=== PATIENT | female | born 1990 | race Native Hawaiian/Other Pacific Islander ===

== ENCOUNTER 2023-01-03 00:31 | Emergency (ER) | payer MEDICAID ==
[~2023-01-03] VITALS: Ht 162.6 cm; Wt 79.4 kg
[~2023-01-03 00:31] MED LIST: CRS350T PO; CYCL10TA9 PO; METH4TAB PO; NAPR250T34 PO; PRM25T PO
--- NOTE | 2023-01-03 01:46 | ED Lower Extremity ---
General Chief Complaint: Lower Extremity Stated Complaint: LEG ANKLE & FOOT PAIN Nursing Triage Note: Patient ambulates to ED6. Reports left ankle/foot rolled and was caught in a door on Sunday. Pt reports using ice/heat and wrapping ankle to alleviate swelling. Now reports that foot is cold, discolored, intermittent swelling, and with decreased cap refill, and feels like it is "popping" when ambulating. Reports pain 7/10, radiates from lateral side of left foot up into ankle. Source: patient Exam Limitations: no limitations History of Present Illness Date Seen by Provider: January 03, 2023 Time Seen by Provider: 01:37 Initial Comments Patient is a 32-year-old female who presents to the emergency room with a chief complaint of left foot pain. Patient states that she was going through some double doors when the door did not open correctly and her foot got caught between the 2 doors. Her ankle "rolled" and she sustained a crush injury to the mid left foot. Patient complains of the most pain to the lateral aspect of the left foot. She states it is painful to walk on. She feels a "popping" when she walks. She states the foot feels cold. Denies any injury to her knee. Declining pain medications as she states she is a "severe epileptic" and will not risk taking pain medications with her seizure medications. Onset: other (4 days ago) Pain/Injury Location: left foot Method of Injury: other (crushed foot between 2 doors) Modifying Factors: Improves With Cold Therapy, Improves With Immobilization; Worse With Movement Allergies and Home Medications Allergies Uncoded Allergies: orange dye (Allergy, Intermediate, 12/10/11) pcn (Allergy, Unknown, 12/10/11) Patient Home Medication List Home Medication List Reviewed: Yes Carisoprodol (Soma) 350 Mg Tablet, 1 TAB PO TID PRN Prescribed by: YASH SANTAMARIA on 12/10/111935 Methylprednisolone (Medrol Dose Pack) 4 Mg/Dose-Pack Tab.ds.pk, 1 PACKET PO UD Prescribed by: YASH SANTAMARIA on 12/10/111926 Naproxen (Naprosyn) 250 Mg Tablet, 1 EACH PO TID, (Reported) Entered as Reported by: TALAT DOUGHERTY on 12/10/111917 Promethazine Hcl (Phenergan 25 Mg) 25 Mg Tablet, 1 TAB PO DAILY, (Reported) Entered as Reported by: TALAT DOUGHERTY on 12/10/111917 Review of Systems Constitutional: see HPI Musculoskeletal: joint pain (left foot) Skin: other (swelling) Past Hzhehoz-Xyhwqs-Csfrwm Hx Patient Social History Tobacco Use?: Yes Tobacco type used: Cigarettes Smoking Status: Current Someday Smoker Substance use?: Yes Substance type: Marijuana Substance frequency: Couple times a week Alcohol Use?: No Pt feels they are or have been: No Immunizations Up To Date Influenza Vaccine Up-to-Date: No; Not Current First/Initial COVID19 Vaccinat: None Physical Exam Vital Signs Vital Signs - First Documented 01/03/23 01:05 Temp 36.3 Pulse 77 Resp 16 B/P (MAP) 129/99 (109) Pulse Ox 98 O2 Delivery Room Air Capillary Refill : Height, Weight, BMI Height: '" Weight: lbs. oz. kg; 30.00 BMI Method:Stated General Appearance: WD/WN, no apparent distress Cardiovascular: regular rate, rhythm Respiratory: no respiratory distress, no accessory muscle use Hips: bilateral hip normal range of motion Legs: bilateral leg normal range of motion Knees: left knee non-tender, left knee normal inspection, left knee normal range of motion, left knee no evidence of injury Ankles: left ankle non-tender, left ankle normal inspection, left ankle normal range of motion, left ankle no evidence of injury Feet: left foot bone tenderness, left foot limited range of motion, left foot pain, left foot soft tissue tenderness (left dorsal lateral foot as well as plantar surface) Neurologic/Tendon: normal sensation Neurologic/Psychiatric: alert, normal mood/affect, oriented x 3 Skin: normal color, warm/dry Progress/Results/Core Measures Results/Orders My Orders Orders - FLOR WEN MD Foot, Left, 3 Views (01/03/23 01:42) Vital Signs/I&O 01/03/23 01/03/23 01:05 03:07 Temp 36.3 36.3 Pulse 77 69 Resp 16 16 B/P (MAP) 129/99 (109) 127/96 Pulse Ox 98 99 O2 Delivery Room Air Room Air Blood Pressure Mean: 109 Diagnostic Imaging Diagonstic Imaging: Xray Comments foot xray - independent interpretation - no fracture or dislocation Departure Impression Primary Impression: Contusion of foot Qualified Codes: S90.32XA - Contusion of left foot, initial encounter Disposition: HOME, SELF-CARE Condition: Stable Departure-Patient Inst. Decision time for Depature: 02:53 Referrals: NO,LOCAL PHYSICIAN (PCP/Family) Primary Care Physician Patient Instructions: Foot Sprain ED Add. Discharge Instructions: Continue to alternate ice and heat. You can use over the counter Diclofenac gel/cream or Icy Hot or Biofreeze for pain. Elevate the foot to decrease swelling. Follow up with your primary care doctor. FLOR WEN MD January 03, 2023 01:46
[2023-01-03 03:07] VITALS: BP 127/96
--- NOTE | 2023-01-03 06:05 | Diagnostic Imaging Report ---
FOOT, LEFT, 3 VIEWS INDICATION: Left foot pain after injury COMPARISON: None available. TECHNIQUE: Three non-weightbearing views of foot were obtained. FINDINGS: No fracture or traumatic malalignment. No evidence of metatarsal stress fracture. No soft tissue swelling. IMPRESSION: 1. No acute fracture or traumatic malalignment. Dictated by: Dictated on workstation # [id number]
== END 2023-01-03 03:07 | disposition home or self-care (01) ==
LOC: EDUNIT# 00:31 → ER 00:38
DX: S90.32XA Contusion of left foot, initial encounter (principal); G40.909 Epilepsy, unspecified, not intractable, without status epilepticus; F17.210 Nicotine dependence, cigarettes, uncomplicated; Z79.899 Other long term (current) drug therapy; Z28.310 Unvaccinated for COVID-19; W23.0XXA Caught, crushed, jammed, or pinched between moving objects, initial encounter
CPT/HCPCS: 73630

== ENCOUNTER 2023-01-20 21:43 | Emergency (ER) | payer MEDICAID ==
[~2023-01-20] VITALS: Ht 162.6 cm; Wt 87.5 kg
[2023-01-20] MEDS ORDERED: LORazepam INJ 2 MG/ML (ATIVAN) VIAL IVP STA (22:02)
--- NOTE | 2023-01-20 22:05 | ED Chest Pain ---
General Chief Complaint: Cardiac/General Problems Stated Complaint: ARMS NUMB/CHEST PAIN Source: patient Exam Limitations: no limitations History of Present Illness Date Seen by Provider: January 20, 2023 Time Seen by Provider: 21:47 Initial Comments 32-year-old female with past medical history of epilepsy most notably coming in due to chest pain and essentially whole body numbness. She was working at the [employer], was laughing, and noticed everything come on all of a sudden. This has happened in the past and she follows with a building maintenance technician. She has had a negative stress test in the past and has another one coming up soon. She is also had a legal technician patch on currently. Denies any prior history of DVT or PE, no lower extremity swelling or pain, no recent surgery, no hormone use. She states she feels hot, was breathing rapidly, and felt like her hands and feet were both numb. Allergies and Home Medications Allergies Uncoded Allergies: orange dye (Allergy, Intermediate, 12/10/11) pcn (Allergy, Unknown, 12/10/11) Patient Home Medication List Home Medication List Reviewed: Yes Carisoprodol (Soma) 350 Mg Tablet, 1 TAB PO TID PRN Prescribed by: YASH SANTAMARIA on 12/10/111935 Methylprednisolone (Medrol Dose Pack) 4 Mg/Dose-Pack Tab.ds.pk, 1 PACKET PO UD Prescribed by: YASH SANTAMARIA on 12/10/111926 Naproxen (Naprosyn) 250 Mg Tablet, 1 EACH PO TID, (Reported) Entered as Reported by: TALAT DOUGHERTY on 12/10/111917 Promethazine Hcl (Phenergan 25 Mg) 25 Mg Tablet, 1 TAB PO DAILY, (Reported) Entered as Reported by: TALAT DOUGHERTY on 12/10/111917 Review of Systems Review of Systems Constitutional: No fever EENTM: No Symptoms Reported Respiratory: No Symptoms Reported Cardiovascular: See HPI Gastrointestinal: No Symptoms Reported Genitourinary: No Symptoms Reported Musculoskeletal: no symptoms reported Psychiatric/Neurological: See HPI Endocrine: No Symptoms Reported Hematologic/Lymphatic: No Symptoms Reported Past Bekrmez-Lolhjo-Ucyhma Hx Patient Social History Tobacco Use?: Yes Tobacco type used: Cigarettes Substance use?: Yes Substance type: Marijuana Immunizations Up To Date First/Initial COVID19 Vaccinat: None Past Medical History Surgeries: Yes Gallbladder, Hysterectomy Physical Exam Vital Signs Vital Signs - First Documented 01/20/23 21:53 Temp 35.9 Pulse 71 Resp 23 B/P (MAP) 130/96 (107) Pulse Ox 100 Capillary Refill : Height, Weight, BMI Height: '" Weight: lbs. oz. kg; 30.00 BMI Method:Stated General Appearance: WD/WN, Anxious HEENT: PERRL/EOMI, Normal ENT Inspection, Pharynx Normal Neck: Full Range of Motion, Normal Inspection, Non Tender, Supple Respiratory: Chest Non Tender, Lungs Clear, Normal Breath Sounds, No Accessory Muscle Use, No Respiratory Distress Cardiovascular: Regular Rate, Rhythm, No Edema, Normal Peripheral Pulses Gastrointestinal: Normal Bowel Sounds, Non Tender, Soft; No Distended, No Guarding Extremity: Normal Capillary Refill, Normal Inspection, Normal Range of Motion, Non Tender, No Calf Tenderness, No Pedal Edema Neurologic/Psychiatric: Alert, Oriented x3, No Motor/Sensory Deficits, Normal Mood/Affect, recovery manager II-XII Norm as Tested Skin: Normal Color, Warm/Dry Progress/Results/Core Measures Results/Orders Lab Results Laboratory Tests Test 01/20/23 22:00 01/20/23 22:15 Range/Units White Blood Count 7.1 4.3-11.0 10^3/uL Red Blood Count 5.49 H 3.80-5.11 10^6/uL Hemoglobin 15.8 11.5-16.0 g/dL Hematocrit 45 35-52 % Mean Corpuscular Volume 83 80-99 fL Mean Corpuscular Hemoglobin 29 25-34 pg Mean Corpuscular Hemoglobin Concent 35 32-36 g/dL Red Cell Distribution Width 13.8 10.0-14.5 % Platelet Count 294 130-400 10^3/uL Mean Platelet Volume 9.8 9.0-12.2 fL Immature Granulocyte % (Auto) 0 % Neutrophils (%) (Auto) 41 L 42-75 % Lymphocytes (%) (Auto) 48 H 12-44 % Monocytes (%) (Auto) 8 0-12 % Eosinophils (%) (Auto) 3 0-10 % Basophils (%) (Auto) 0 0-10 % Neutrophils # (Auto) 2.9 1.8-7.8 10^3/uL Lymphocytes # (Auto) 3.4 1.0-4.0 10^3/uL Monocytes # (Auto) 0.5 0.0-1.0 10^3/uL Eosinophils # (Auto) 0.2 0.0-0.3 10^3/uL Basophils # (Auto) 0.0 0.0-0.1 10^3/uL Immature Granulocyte # (Auto) 0.0 0.0-0.1 10^3/uL Prothrombin Time 12.6 12.2-14.7 SEC INR Comment 0.9 0.8-1.4 Activated Partial Thromboplast Time 31 24-35 SEC Sodium Level 138 135-145 MMOL/L Potassium Level 3.6 3.6-5.0 MMOL/L Chloride Level 104 98-107 MMOL/L Carbon Dioxide Level 19 L 21-32 MMOL/L Anion Gap 15 H 5-14 MMOL/L Blood Urea Nitrogen 11 7-18 MG/DL Creatinine 0.86 0.60-1.30 MG/DL Estimat Glomerular Filtration Rate 93 BUN/Creatinine Ratio 13 Glucose Level 83 70-105 MG/DL Calcium Level 10.0 8.5-10.1 MG/DL Corrected Calcium 8.5-10.1 MG/DL Magnesium Level 1.9 1.6-2.4 MG/DL Total Bilirubin 0.5 0.1-1.0 MG/DL Aspartate Amino Transf (AST/SGOT) 50 H 5-34 U/L Alanine Aminotransferase (ALT/SGPT) 69 H 0-55 U/L Alkaline Phosphatase 89 40-136 U/L Troponin I < 0.028 <0.028 NG/ML Total Protein 7.9 6.4-8.2 GM/DL Albumin 4.6 H 3.2-4.5 GM/DL Lipase 15 8-78 U/L Glucometer 61 L 70-110 MG/DL My Orders Orders - KATHERINE MUÑIZ MD Cbc With Automated Diff (01/20/23 22:02) Magnesium (01/20/23 22:02) Chest 1 View, Ap/Pa Only (01/20/23 22:02) Ekg Tracing (01/20/23 22:02) Comprehensive Metabolic Panel (01/20/23 22:02) Protime With Inr (01/20/23 22:02) Partial Thromboplastin Time (01/20/23 22:02) O2 (01/20/23 22:02) Monitor-Rhythm Ecg Trace Only (01/20/23 22:02) Ed Iv/Invasive Line Start (01/20/23 22:02) Lipase (01/20/23 22:02) Troponin I [place] (01/20/23 22:02) Lorazepam Injection (Ativan Injection) (01/20/23 22:02) Accucheck Stat ONCE (01/20/23 22:16) Vital Signs/I&O 01/20/23 21:53 Temp 35.9 Pulse 71 Resp 23 B/P (MAP) 130/96 (107) Pulse Ox 100 Progress Progress Note : Progress Note 32-year-old female with above history coming in due to chest pain. ABCs were intact and vitals were stable on presentation. Physical exam reassuring with no acute abnormalities and objectively no neuro findings with her being neuro intact. EKG ordered and interpreted by me showing no acute ischemic changes. Chest x-ray ordered and interpreted by me showing no pneumothorax, normal cardiac silhouette, no obvious pneumonia. An IV was placed and basic labs were obtained including cardiac biomarkers. She was given Ativan for her very obvious anxiety. She also has a seizure disorder, she states she potentially had a seizure earlier. She is low risk for PE per [place] criteria and is PERC negative. Low risk for ACS as well and has had negative stress testing in the past. White blood cell count normal, troponin negative, normal creatinine, slightly elevated AST and ALT which is nonspecific. No clinical signs of life- threatening illness at this time. I believe the patient is otherwise stable for discharge with outpatient follow-up. She was sent home with strict return precautions. Initial ECG Impression Date: January 20, 2023 Initial ECG Impression Time: 22:26 Initial ECG Rate: 50 Initial ECG Rhythm: S.Abhishek Comment Narrow QRS, normal axis, no significant ST changes or T wave abnormalities Diagnostic Imaging Diagonstic Imaging: Xray (chest) Departure Impression Primary Impression: Chest wall pain Additional Impression: Epilepsy Qualified Codes: G40.802 - Other epilepsy, not intractable, without status epilepticus Disposition: HOME, SELF-CARE Condition: Stable Departure-Patient Inst. Decision time for Depature: 22:50 Referrals: NO,LOCAL PHYSICIAN (PCP/Family) Primary Care Physician Patient Instructions: Chest Pain That Is Not Caused by the Heart (DC) Add. Discharge Instructions: We are not seeing any evidence of life-threatening causes of chest pain at this time. Please continue to follow-up with your building maintenance technician as scheduled. Continue to take your Keppra for your epilepsy. Do not operate any vehicles at this time. Work/School Note: Work Release Form Date Seen in the Emergency Department: January 20, 2023 Return to Work: January 22, 2023 Restrictions: No Restrictions KATHERINE MUÑIZ MD January 20, 2023 22:05
[2023-01-20 22:10] LABS: BASOPHILS % (AUTO) 0 % (0-10); EOSINOPHILS # (AUTO) 0.2 10^3/uL (0.0-0.3); EOSINOPHILS % (AUTO) 3 % (0-10); HEMATOCRIT 45 % (35-52); HEMOGLOBIN 15.8 g/dL (11.5-16.0); LYMPHOCYTES # (AUTO) 3.4 10^3/uL (1.0-4.0); LYMPHOCYTES % (AUTO) 48 % (12-44); MEAN CORPUSCULAR HEMOGLOBIN 29 pg (25-34); MEAN CORPUSCULAR HGB CONC 35 g/dL (32-36); MEAN CORPUSCULAR VOLUME 83 fL (80-99); MEAN PLATELET VOLUME 9.8 fL (9.0-12.2); MONOCYTES # (AUTO) 0.5 10^3/uL (0.0-1.0); MONOCYTES % (AUTO) 8 % (0-12); NEUTROPHILS # (AUTO) 2.9 10^3/uL (1.8-7.8); NEUTROPHILS % (AUTO) 41 % (42-75); PLATELET COUNT 294 10^3/uL (130-400); WHITE BLOOD COUNT 7.1 10^3/uL (4.3-11.0)
[2023-01-20 22:19] LABS: ALBUMIN 4.6 GM/DL (3.2-4.5); CHLORIDE 104 MMOL/L (98-107); POTASSIUM 3.6 MMOL/L (3.6-5.0); SODIUM 138 MMOL/L (135-145)
[2023-01-20 22:20] LABS: INR 0.9 (0.8-1.4); PROTHROMBIN TIME PATIENT 12.6 SEC (12.2-14.7)
[2023-01-20 22:21] LABS: GLUCOSE 83 MG/DL (70-105)
[2023-01-20 22:22] LABS: TOTAL PROTEIN 7.9 GM/DL (6.4-8.2)
[2023-01-20 22:23] LABS: BILIRUBIN,TOTAL 0.5 MG/DL (0.1-1.0); CARBON DIOXIDE 19 MMOL/L (21-32)
[2023-01-20 22:25] LABS: ALKALINE PHOSPHATASE 89 U/L (40-136); CREATININE SERUM 0.86 MG/DL (0.60-1.30); GFR ESTIMATED 93
[2023-01-20 22:26] LABS: BUN/CREATININE RATIO 13
[2023-01-20 22:28] LABS: ALANINE AMINOTRANSFERASE 69 U/L (0-55); MAGNESIUM 1.9 MG/DL (1.6-2.4)
[2023-01-20 22:29] LABS: LIPASE 15 U/L (8-78)
[2023-01-20 22:54] VITALS: BP 131/97
--- NOTE | 2023-01-21 07:06 | Diagnostic Imaging Report ---
CHEST 1 VIEW, AP/PA ONLY Indication: Chest pain. Comparison: None available. Findings: Right perihilar hazy opacities are likely due to summation shadow from patient's breast tissue. No pleural effusion or pneumothorax. Normal cardiac silhouette. Impression: 1. Right perihilar opacities are likely due to summation shadow from patient breast tissue. Although, in the appropriate clinical setting this could be due to pneumonia. Dictated by: Dictated on workstation # [id number]
== END 2023-01-20 22:55 | disposition home or self-care (01) ==
LOC: EDUNIT# 21:43 → ER 21:45
DX: R07.89 Other chest pain (principal); G40.909 Epilepsy, unspecified, not intractable, without status epilepticus; F41.9 Anxiety disorder, unspecified; F17.210 Nicotine dependence, cigarettes, uncomplicated; Z28.310 Unvaccinated for COVID-19
CPT/HCPCS: 36415; 71045; 80053; 82947; 83690; 83735; 84484; 85025; 85610; 85730; 93005; 93041